=== PATIENT | female | born 1945 | race Two or more races ===

== ENCOUNTER 2018-05-03 05:30 | Day surgery (SDC) | payer OTHER ==
[~2018-05-03 05:30] MED LIST: FORTAMET1000 MG PO; LIPITOR40 MG PO; LOSARTAN POTASS50 MG PO; NORVASC10 MG PO; PLAVIX75 MG PO; SYNTROID PO; TENORMIN50 M1 PO
== END 2018-05-03 10:00 | disposition home or self-care (01) ==
LOC: CIR.AMB 05:30
DX: M65.841 Other synovitis and tenosynovitis, right hand (principal)